=== PATIENT | female | born 1955 ===

== ENCOUNTER 2016-12-24 07:58 | Day surgery (SDC) | payer OTHER ==
[2016-12-24] MEDS ORDERED: Lactated Ringer's 500 ML IV ONE (08:38)
[2016-12-24 09:06] VITALS: TEMP 97
[2016-12-24] MEDS ORDERED: Midazolam 2 MG/2 ML VIAL ONE (10:02)
[2016-12-24] MEDS ORDERED: Propofol 10 mg/ml Inj (20 ML) ONE (10:02)
[2016-12-24 10:55] VITALS: BP 150/76; PULSE 67; RESP 19; O2SAT 99
== END 2016-12-24 11:55 | disposition home or self-care (01) ==
LOC: H.ENDO 07:58
PROVIDERS: ATTEND Internal Medicine Gastroenterology
DX: R10.13 Epigastric pain (principal); I10 Essential (primary) hypertension; G47.33 Obstructive sleep apnea (adult) (pediatric); E66.9 Obesity, unspecified; K31.9 Disease of stomach and duodenum, unspecified; K44.9 Diaphragmatic hernia without obstruction or gangrene; K30 Functional dyspepsia
CPT/HCPCS: 43239; 88305; J2250; J2704; J7120